=== PATIENT | female | born 1990 | race Hispanic/Latino ===

== ENCOUNTER 2022-07-08 05:25 | Inpatient (IN) | payer MEDICAID, OTHER ==
[2022-07-08] MEDS ORDERED: hydrALAZINE 20 MG/ML VIAL SLOW IVP PRN ×2 (05:59→10:37)
[2022-07-08] MEDS ORDERED: Promethazine HCl 25 MG/ML VIAL IM PRN ×3 (05:59→10:37)
[2022-07-08] MEDS ORDERED: Ondansetron PF 4 MG/2 ML Vial IVP PRN ×3 (05:59→10:37)
[2022-07-08] MEDS ORDERED: Bicitra 30 ML UDCUP PO PRN (05:59)
[2022-07-08] MEDS ORDERED: Famotidine/PF 20 mg/2ml Vial SLOW IVP PRN (05:59)
[2022-07-08] MEDS ORDERED: CEFAZOLIN 2 GM in Sodium Chloride 0.9% 100 ML IVPB SCH (06:30)
[2022-07-08] MEDS ORDERED: Lactated Ringer's 1,000 ML IV SCH (06:30)
[2022-07-08] MEDS ORDERED: Morphine PF 10 MG/10 ML VIAL ONE (07:25)
[2022-07-08] MEDS ORDERED: Oxytocin 10 UNITS/ML VIAL ONE (07:26)
[2022-07-08] MEDS ORDERED: Ondansetron PF 4 MG/2 ML Vial ONE (07:26)
[2022-07-08] MEDS ORDERED: Dexamethasone 4 mg/ml Vial ONE (07:26)
[2022-07-08] MEDS ORDERED: Fentanyl 100 MCG/2 ML VIAL ONE (07:26)
[2022-07-08] MEDS ORDERED: Phenylephrine 40 MG/NS 250 ML 250 ML ONE (07:26)
[2022-07-08] MEDS ORDERED: ePHEDrine Sulfate 50 MG/10 ML VIAL ONE (07:26)
[2022-07-08] MEDS ORDERED: Ketorolac Tromethamine 30 MG/ML VIAL ONE (08:26)
[2022-07-08] MEDS ORDERED: Naloxone HCl 0.4 mg/ml Vial IV PRN (08:44)
[2022-07-08] MEDS ORDERED: Meperidine HCl/PF 25 MG/ML VIAL SLOW IVP PRN (08:44)
[2022-07-08] MEDS ORDERED: Ketorolac Tromethamine 30 MG/ML VIAL IVP PRN (08:44)
[2022-07-08] MEDS ORDERED: HYDROmorphone 2 MG/ML VIAL SLOW IVP PRN (08:44)
[2022-07-08] MEDS ORDERED: Naloxone HCl 0.4 mg/ml Vial IVP PRN ×2 (08:44)
[2022-07-08] MEDS ORDERED: Promethazine HCl 25 MG SUPP PR PRN (08:44)
[2022-07-08] MEDS ORDERED: diphenhydrAMINE 50 MG/ML VIAL IVP PRN (08:44)
[2022-07-08] MEDS ORDERED: Ondansetron HCl/PF 4 MG/2 ML Vial IVP PRN (08:44)
[2022-07-08] MEDS ORDERED: Fentanyl 100 MCG/2 ML VIAL SLOW IVP PRN (08:44)
[2022-07-08] MEDS ORDERED: Moisturizing Cream (Eucerin) 113 GM JAR TOP PRN (08:44)
[2022-07-08] MEDS ORDERED: Communication Order-Pharmacy FS SCH (08:45)
[2022-07-08] MEDS ORDERED: Ketorolac Tromethamine 30 MG/ML VIAL IVP SCH (08:45)
[2022-07-08] MEDS ORDERED: NS w/ Oxytocin 30 units 500 ML ONE (09:09)
[2022-07-08] MEDS ORDERED: Bisacodyl 10 MG SUPP PR PRN (10:37)
[2022-07-08] MEDS ORDERED: diphenhydrAMINE 25 MG CAP PO PRN (10:37)
[2022-07-08] MEDS ORDERED: NS w/ Oxytocin 30 units 500 ML IV SCH (10:37)
[2022-07-08] MEDS ORDERED: Lanolin Ointment 7 GM TUBE TOP PRN (10:37)
[2022-07-08] MEDS ORDERED: Simethicone Chewable 80 MG TAB PO PRN (10:37)
[2022-07-08] MEDS ORDERED: Ferrous Sulfate 325 MG TAB PO SCH (11:00)
[2022-07-08] MEDS ORDERED: Docusate 100 MG CAP PO SCH (11:00)
[2022-07-08] MEDS ORDERED: Prenatal Vitamin 1 TAB PO SCH (11:00)
[2022-07-08 12:54] VITALS: BMI 37.0
[2022-07-08] MEDS: Ketorolac Tromethamine 30 MG/ML VIAL IVP SCH ×2 (16:25→22:30)
[2022-07-08] MEDS: Docusate 100 MG CAP PO SCH (21:25)
[2022-07-08] MEDS: Ferrous Sulfate 325 MG TAB PO SCH (21:26)
[2022-07-09] MEDS: Ketorolac Tromethamine 30 MG/ML VIAL IVP SCH ×2 (04:13→08:27)
[2022-07-09 05:46] LABS: Hemoglobin 10.3 g/dL (12.0-15.5); Mean Corpuscular HGB CONC 32.6 g/dL (32.0-36.0); Mean Corpuscular Hemoglobin 28.3 pg (27.0-33.0); Mean Corpuscular Volume 86.8 fl (81.6-98.3); Mean Platelet Volume 14.1 fl (7.4-10.4); Platelet Count 172 10x3/uL (150-450); RBC Distribution Width 14.5 % (11.5-14.5); Red Blood Cell (RBC) Count 3.64 10x6/uL (3.90-5.03); White Blood Cell (WBC) Count 12.9 10x3/uL (3.5-10.5)
[2022-07-09] MEDS: Ferrous Sulfate 325 MG TAB PO SCH ×2 (07:33→21:09)
[2022-07-09] MEDS: Docusate 100 MG CAP PO SCH ×2 (08:35→21:49)
[2022-07-09] MEDS: Prenatal Vitamin 1 TAB PO SCH (08:35)
[2022-07-09] MEDS: HYDROcodone/Acetaminophen 5/325 mg Tablet PO PRN ×3 (10:26→19:50)
[2022-07-09] MEDS ORDERED: Boostrix 0.5 ML (Tdap) VIAL (>/=7 yrs of age) IM ONE (10:37)
[2022-07-09] MEDS: Ibuprofen 800 MG TAB PO SCH ×2 (13:43→21:49)
[2022-07-10] MEDS: Ibuprofen 800 MG TAB PO SCH ×3 (05:05→21:13)
[2022-07-10] MEDS: Docusate 100 MG CAP PO SCH ×2 (08:23→21:12)
[2022-07-10] MEDS: Prenatal Vitamin 1 TAB PO SCH (08:23)
[2022-07-10] MEDS: HYDROcodone/Acetaminophen 5/325 mg Tablet PO PRN ×3 (08:51→20:14)
[2022-07-10] MEDS: Ferrous Sulfate 325 MG TAB PO SCH ×2 (10:08→21:14)
[2022-07-11] MEDS: Ibuprofen 800 MG TAB PO SCH ×2 (05:11→13:53)
[2022-07-11 08:09] VITALS: BP 133/81; TEMP 98.3
[2022-07-11] MEDS: Prenatal Vitamin 1 TAB PO SCH (08:15)
[2022-07-11] MEDS: Docusate 100 MG CAP PO SCH (08:15)
[2022-07-11] MEDS: HYDROcodone/Acetaminophen 5/325 mg Tablet PO PRN ×2 (08:22→13:54)
[2022-07-11] MEDS: Ferrous Sulfate 325 MG TAB PO SCH (13:55)
== END 2022-07-11 18:06 | disposition home or self-care (01) | DRG 788 ==
LOC: CSHLD 05:25 → CSHPED 10:58
PROVIDERS: ADMIT Family Medicine; ATTEND Family Medicine
PROC: 10D00Z1 Extraction of Products of Conception, Low, Open Approach (ICD-10-PCS; principal; 2022-07-08)
DX: O34.211 Maternal care for low transverse scar from previous cesarean delivery (principal); Z3A.39 39 weeks gestation of pregnancy; Z37.0 Single live birth; O99.62 Diseases of the digestive system complicating childbirth; K66.0 Peritoneal adhesions (postprocedural) (postinfection)
CPT/HCPCS: 36415; 51702; 85027; 86850; 86900; 86901; J1100; J1885; J2274; J2405; J2590; J3010; J3490; S0028